=== PATIENT | female | born 1975 | race Caucasian/White ===

== ENCOUNTER 2017-01-15 10:26 | Emergency (ER) | payer BC ==
[~2017-01-15] VITALS: Ht 160 cm; Wt 66.2 kg
[~2017-01-15 10:26] MED LIST: AMOXICILLIN500 MG PO; AZITHROMYCIN250 MG PO; CIPRO500 MG PO; CITALOPRAM HBR20 MG PO; GABAPENTIN300 MG PO; IBUPROFEN800 MG PO; LEVOTHYROXINE112 MCG PO; LEVOTHYROXINE125 MCG PO; MAXALT10 MG PO; METHYLPREDNISOLO4 M1 PO; MULTI-DAY VITA1 EACH PO; NORTRIPTYLINE H10 MG PO; PREDNISONE20 MG PO; PROAIR HFA8.5 GM INH; PROPRANOLOL HCL20 MG PO; PROPRANOLOL HCL40 MG PO; PYRIDIUM200 MG PO; SUMATRIPTAN SUC50 MG PO; TRAMADOL HCL50 MG PO; VITAMIN C250 M1 PO; WELLBUTRIN XL300 MG PO
[2017-01-15] MEDS ORDERED: BUSPIRONE HCL15 MG PO (10:39)
--- OUTSIDE RECORDS SUMMARY | 2017-01-15 11:13 | XMS | Clinical Summary ---
Demographics + + + | Address | [address] | | | [place] [address] | + + + | Home Phone | | + + + | Preferred Language | Unknown | + + + | Marital Status | Single | + + + | Congregational Affiliation | Unknown | + + + | Race | White | + + + | Ethnic Group | Not or | + + + Author + + + | Author | [facility] | + + + | Organization | [facility] | + + + | Address | Unknown | + + + | Phone | Unavailable | + + + Support + + +---------+ + | Name | Relationship | Address | Phone | + + +---------+ + | Ollie Gail | ECON | Unknown | | + + +---------+ + Care Team Providers + +------+-------+ | Care Manager Science Name | Role | Phone | + +------+-------+ | Joan Bolanos PA-C | PP | tel | + +------+-------+ Source Comments MELLISA is fully live on both [facility] Ambulatory and [facility] InPatient.[facility] Allergies + + + + + + | Active Allergy | Reactions | Severity | Noted | Comments | | | | | Date | | + + + + + + | Meperidine | Hives | | 06/29/19 | | | | | | 16 | | + + + + + + Current Medications + + +-------+---------+------+------+-------+ | Prescription | Sig. | Disp. | Refills | Star | End | Statu | | | | | | t | Date | s | | | | | | Date | | | + + +-------+---------+------+------+-------+ | buPROPion XL 300 | 300 mg once daily. | | 0 | 03/1 | | Activ | | mg oral tablet | | | | 06/26 | | e | | extended release 24 | | | | 16 | | | | hr | | | | | | | + + +-------+---------+------+------+-------+ | nortriptyline 10 | once daily at | | 0 | 02/1 | | Activ | | mg oral capsule | bedtime. | | | 03/28 | | e | | | | | | 16 | | | + + +-------+---------+------+------+-------+ | VENTOLIN HFA 90 | Inhale 2 puffs by | | 0 | 02/2 | | Activ | | mcg/actuation | mouth every four | | | 8/20 | | e | | inhalation HFA | hours as needed. | | | 16 | | | | aerosol inhaler | | | | | | | + + +-------+---------+------+------+-------+ | ibuprofen 800 mg | Take 800 mg by mouth | | | | | Activ | | oral tablet | as needed. | | | | | e | + + +-------+---------+------+------+-------+ | levothyroxine 125 | Take 125 mcg by | | | | | Activ | | mcg oral tablet | mouth once daily. | | | | | e | + + +-------+---------+------+------+-------+ | naproxen 500 mg | 500 mg. | | | | | Activ | | oral tablet | | | | | | e | + + +-------+---------+------+------+-------+ Active Problems + + + | Problem | Noted Date | + + + | Dakotah (SURAJ) | 07/05/2015 | + + + Social History + + + +--------+------+ | Tobacco Use | Types | Packs/Day | Years | Date | | | | | Used | | + + + +--------+------+ | Current Every Day | Cigarettes | | | | | Smoker | | | | | + + + +--------+------+ + +---+---+---+ | Smokeless Tobacco: | | | | | Never Used | | | | + +---+---+---+ + + +---------+ + | Alcohol Use | Drinks/We | oz/Week | Comments | | | ek | | | + + +---------+ + | No | 0 | 0.0 | | | | Standard | | | | | drinks or | | | | | | | | | | equivalen | | | | | t | | | + + +---------+ + + + + | Sex Assigned at | Date Recorded | | | | + + + | Not on file | | + + + Last Filed Vital Signs + + + + | Vital Sign | Reading | Time Taken | + + + + | Blood Pressure | 135/88 | 07/13/2015 12:21 PM PDT | + + + + | Pulse | 94 | 07/13/2015 12:21 PM PDT | + + + + | Temperature | 36.7 C (98.1 F) | 07/13/2015 12:21 PM PDT | + + + + | Respiratory Rate | - | - | + + + + | Oxygen Saturation | - | - | + + + + | Inhaled Oxygen | - | - | | Concentration | | | + + + + | Weight | 76.7 kg (169 lb 1.6 | 07/13/2015 12:21 PM PDT | | | oz) | | + + + + | Height | 157.5 cm (5' 2") | 06/29/2015 10:46 AM PDT | + + + + | Body Mass Index | 30.93 | 07/13/2015 12:21 PM PDT | + + + + Plan of Treatment + + + + + | Health Maintenance | Due Date | Last Done | Comments | + + + + + | INFLUENZA VACCINE | | 02/07/2014 | | | (FLU SHOT) | 7 | | | + + + + + Results Not on filefrom Last 3 Months
--- OUTSIDE RECORDS SUMMARY | 2017-01-15 11:13 | XMS | Clinical Summary ---
Demographics + + + | Address | [address] | | | [place] [address] | + + + | Home Phone | | + + + | Preferred Language | Unknown | + + + | Marital Status | Single | + + + | Uatsdin Affiliation | Unknown | + + + | Race | White | + + + | Ethnic Group | Not or | + + + Author + + + | Author | [facility] | + + + | Organization | [facility] | + + + | Address | Unknown | + + + | Phone | Unavailable | + + + Support + + +---------+ + | Name | Relationship | Address | Phone | + + +---------+ + | Ollie Gail | ECON | Unknown | | + + +---------+ + Care Team Providers + +------+-------+ | Care Center Consultant Name | Role | Phone | + +------+-------+ | Joan Bolanos PA-C | PP | tel | + +------+-------+ Source Comments MELLISA is fully live on both [facility] Ambulatory and [facility] InPatient.[facility] & [facility] Allergies + + + + + + [...]
== END 2017-01-15 13:10 | disposition home or self-care (01) ==
LOC: ED 10:26
DX: G43.909 Migraine, unspecified, not intractable, without status migrainosus (principal); Z87.891 Personal history of nicotine dependence; Z98.51 Tubal ligation status; Z90.49 Acquired absence of other specified parts of digestive tract; Z88.8 Allergy status to other drugs, medicaments and biological substances; Z79.899 Other long term (current) drug therapy
CPT/HCPCS: 96361; 96374; 96375; 99282; J1200; J1885; J2765; J7030

== ENCOUNTER 2017-11-12 11:05 | Emergency (ER) | payer BC ==
[~2017-11-12] VITALS: Ht 160 cm; Wt 66.2 kg
--- OUTSIDE RECORDS SUMMARY | ~2017-11-12 | XMS | Clinical Summary ---
Demographics + + + | Address | [address] | | | [place] [address] | + + + | Home Phone | | + + + | Preferred Language | Unknown | + + + | Marital Status | Single | + + + | Yarsani Affiliation | Unknown | + + + | Race | White | + + + | Ethnic Group | Not or | + + + Author + + + | Author | [facility] | + + + | Organization | [facility] | + + + | Address | Unknown | + + + | Phone | Unavailable | + + + Support + + +---------+ + | Name | Relationship | Address | Phone | + + +---------+ + | Almaz Levin | ECON | Unknown | | + + +---------+ + Care Team Providers + +------+ + | Care Wireline Operator Name | Role | Phone | + +------+ + | Joan Bolanos PA-C | PP | | + +------+ + Source Comments MELLISA is fully live on both [facility] Ambulatory and [facility] InPatient.[facility] & [facility] Allergies + + + + + + [...] mg oral tablet | | | | 4/20 | | e | | extended release 24 | | | | 16 | | | | hr | | | | | | | + + +-------+---------+------+------+-------+ | nortriptyline 10 | once daily at | | 0 | 02/1 | | Activ | | mg oral capsule | bedtime. | | | 120 | | e | | | | [...] Noted Date | + + + | Meningioma (HCC) | 07/05/2015 | + + + Social [...] + + | INFLUENZA VACCINE | | | | | (FLU SHOT) | 8 | | | + + + + + Results Not on filefrom Last 3 Months Insurance + +--------+ +------+ + + | Payer | Benefi | Subscriber | Type | Phone | Address | | | t Plan | ID | | | | | | / | | | | | | | Group | | | | | + +--------+ +------+ + + | BLUE CROSS BLUE | BCBS | [phone] | PPO | [phone] [address] [address] [place] | | SHIELD | OUT OF | [phone] | | [phone] | [place], [place] | | | [place] | | | | [phone] | + +--------+ +------+ + + + +--------+ +--------+ + + | Guarantor Name | Accoun | Relation to | Date | Phone | Billing Address | | | t Type | Patient | of | | | | | | | | | | + +--------+ +--------+ + + | ROSALINA SPIVEY | Person | Self [birth year] | Home: | [address] | | | al/Fam | | 1975 | [phone] | [place] [address] | | | jesus | | | [phone] | | + +--------+ +--------+ + +
--- OUTSIDE RECORDS SUMMARY | ~2017-11-12 | XMS | Clinical Summary ---
Demographics + + + | Address | [address] | | | [place] [address] | + + + | Home Phone | | + + + | Preferred Language | Unknown | + + + | Marital Status | Single | + + + | Anglican Affiliation | Unknown | + + + [...] Team Providers + +------+ + | Care Boat Painter Name | Role | Phone | + +------+ + | Joan Bolanos PA-C | PP | | + +------+ + Source Comments MELLISA is fully live on both [facility] Ambulatory and [facility] InPatient.[facility] & [facility] Allergies + + + + [...] | PPO | [phone] | [address] [address] [place] | | SHIELD | OUT OF | xxx | | [phone] | [place], [place] | | | [place] | | | | [phone] | + +--------+ +------+ + + + +--------+ +--------+ + + | Guarantor Name | Accoun | Relation to | Date | Phone | Billing Address | | | t Type | Patient | of | | | | | | | | | | + +--------+ +--------+ + + | ROSALINA SPIVEY | Person | Self [birth year] | Home: | [address] | | | al/Fam | | 1975 | [phone] | [place] [address] | | | jesus | | | [phone] | | + +--------+ +--------+ + +
--- OUTSIDE RECORDS SUMMARY | ~2017-11-12 | XMS | Clinical Summary ---
Demographics + + + | Address | [address] | | | [place] [address] | + + + | Home Phone | | + + + | Preferred Language | Unknown | + + + | Marital Status | | + + + | Faith Affiliation | Unknown | + + + | Race | Unknown | + + + | Ethnic Group | Unknown | + + + Author + + + | Author | [facility] | | | and Surjitana | + + + | Organization | [facility] | | | and Surjitana | + + + | Address | Unknown | + + + | Phone | Unavailable | + + + Support + + +---------+ + | Name | Relationship | Address | Phone | + + +---------+ + | Almaz Levin | HALLE | Unknown | | + + +---------+ + Care Team Providers + +------+ + | Care Photoengraving Retoucher Name | Role | Phone | + +------+ + | Aman Cardoso MD | PP | | + +------+ + Allergies + + + + + + | Active Allergy | Reactions | Severity | Noted | Comments | | | | | Date | | + + + + + + | Meperidine | Hives | | 12/20/19 | | | | | | 15 | | + + + + + + Current Medications + + +-------+---------+------+------+-------+ | Prescription | Sig. | Disp. | Refills | Star | End | Statu | | | | | | t | Date | s | | | | | | Date | | | + + +-------+---------+------+------+-------+ | rizatriptan | Take 10 mg by mouth | | | | | Activ | | (MAXALT-JIG INSPECTOR) 10 mg | as needed (take one | | | | | e | | disintegrating | at onset and may | | | | | | | tablet | repeat in 2 hours.). | | | | | | | | May repeat in 2 | | | | | | | | hours if needed | | | | | | + + +-------+---------+------+------+-------+ | propranolol | Take 40 mg by mouth | | | | | Activ | | (INDERAL) 40 mg | 2 times daily. | | | | | e | | tablet | | | | | | | + + +-------+---------+------+------+-------+ | levothyroxine | Take 112 mcg by | | | | | Activ | | (SYNTHROID, | mouth every morning | | | | | e | | LEVOTHROID) 112 mcg | (before breakfast). | | | | | | | tablet | | | | | | | + + +-------+---------+------+------+-------+ | buPROPion | Take 300 mg by mouth | | | | | Activ | | (WELLBUTRIN XL) 300 | every morning. | | | | | e | | mg 24 hr tablet | | | | | | | + + +-------+---------+------+------+-------+ | citalopram | Take 20 mg by mouth | | | | | Activ | | (CELEXA) 20 mg | Daily. | | | | | e | | tablet | | | | | | | + + +-------+---------+------+------+-------+ | gabapentin | Take 300 mg by mouth | | | | | Activ | | (NEURONTIN) 300 mg | 3 times daily. | | | | | e | | capsule | | | | | | | + + +-------+---------+------+------+-------+ Active Problems Not on file Social History + + + +--------+------+ | Tobacco Use | Types | Packs/Day | Years | Date | | | | | Used | | + + + +--------+------+ | Heavy Tobacco Smoker | Cigarettes | 0.5 | | | + + + +--------+------+ + + | Tobacco Cessation: Ready to Quit: No | + + + + +---------+ + | Alcohol Use | Drinks/We | oz/Week | Comments | | | ek | | | + + +---------+ + | Yes | | | rarely | + + +---------+ + + + + | Sex Assigned at | Date Recorded | | | | + + + | Not on file | | + + + Last Filed Vital Signs + + + + | Vital Sign | Reading | Time Taken | + + + + | Blood Pressure | 92/65 | 12/19/20146 PDT | + + + + | Pulse | 66 | 12/19/20146 PDT | + + + + | Temperature | 37.2 C (99 F) | 12/19/2014 1134 PDT | + + + + | Respiratory Rate | 18 | 12/19/20141133 PDT | + + + + | Oxygen Saturation | 96% | 12/19/20146 PDT | + + + + | Inhaled Oxygen | - | - | | Concentration | | | + + + + | Weight | 65.8 kg (145 lb) | 12/19/20141133 PDT | + + + + | Height | 157.5 cm (5' 2.01") | 12/19/20141133 PDT | + + + + | Body Mass Index | 26.51 | 12/19/20141133 PDT | + + + + Plan of Treatment + + + + + | Health Maintenance | Due Date | Last Done | Comments | + + + + + | Vaccine: | | | | | Dtap/Tdap/Td (1 - | 5 | | | | Tdap) | | | | + + + + + | Vaccine: | | | | | Pneumococcal 19-64 | 5 | | | | (PPSV23 only) Medium | | | | | Risk (1 of 1 - | | | | | PPSV23) | | | | + + + + + | Cervical Cancer | | | | | Screening (Pap) | 6 | | | + + + + + | Vaccine: Influenza | | | | | (#1) | 8 | | | + + + + + Results Not on filefrom Last 3 Months Insurance + +--------+ +--------+ +---------+ | Payer | Benefi | Subscriber | Type | Phone | Address | | | t Plan | ID | | | | | | / | | | | | | | Group | | | | | + +--------+ +--------+ +---------+ | [employer] | MODA | [id number] | Medica | [phone] | | | MEDICAID HMO | HEALTH | | id | 9821 | | | | MDCD | | | | | | | [place]MO [place] | | | | | + +--------+ +--------+ +---------+ + +--------+ +--------+ + + | Guarantor Name | Accoun | Relation to | Date | Phone | Billing Address | | | t Type | Patient | of | | | | | | | | | | + +--------+ +--------+ + + | ROSALINA MAYA | Person | Self | [birth year] | Home: | [address] | | | al/Kevin | | 1975 | [phone] | [place] [address] | | | jesus | | | [phone] | | + +--------+ +--------+ + +
--- OUTSIDE RECORDS SUMMARY | ~2017-11-12 | XMS | Clinical Summary ---
Demographics + + + | Address | [address] | | | [place] [address] | + + + | Home Phone | | + + + | Preferred Language | Unknown | + + + | Marital Status | | + + + | Shinto Affiliation | Unknown | + + + | Race | Unknown | + + + | Ethnic Group | Unknown | + + + Author + + + | Author | [facility] | + + + | Organization | [facility] | + + + | Address | Unknown | + + + | Phone | Unavailable | + + + Support + + +---------+ + | Name | Relationship | Address | Phone | + + +---------+ + | Laurel Cannon | ECON | Unknown | | + + +---------+ + | Almaz Levin | ECON | Unknown | | + + +---------+ + Care Team Providers + +------+ + | Care Legal Librarian Name | Role | Phone | + +------+ + | Meron Virk | PP | Unavailable | + +------+ + Allergies + + + + + + | Active Allergy | Reactions | Severity | Noted | Comments | | | | | Date | | + + + + + + | Meperidine | Hives | High | 09/02/19 | | | | | | 15 | | + + + + + + Current Medications + + +---------+---------+------+------+-------+ | Prescription | Sig. | Disp. | Refills | Star | End | Statu | | | | | | t | Date | s | | | | | | Date | | | + + +---------+---------+------+------+-------+ | levothyroxine | Take 125 mcg by | | | | | Activ | | (SYNTHROID) 125 MCG | mouth daily. | | | | | e | | tablet | | | | | | | + + +---------+---------+------+------+-------+ | buPROPion | Take 300 mg by mouth | | | | | Activ | | (WELLBUTRIN XL) 300 | daily. | | | | | e | | MG 24 hr tablet | | | | | | | + + +---------+---------+------+------+-------+ | naproxen | Take 500 mg by mouth | | | | | Activ | | (NAPROSYN) 500 MG | 2 (two) times | | | | | e | | tablet | daily. | | | | | | + + +---------+---------+------+------+-------+ | nortriptyline | Take 2 capsules by | 60 | 3 | 02/1 | | Activ | | (PAMELOR) 10 MG | mouth nightly. Start | capsule | | /20 | | e | | capsuleIndications: | 10 mg hs, increase | | | 16 | | | | Chronic migraine | to 20 mg as needed | | | | | | | | and as tolerated | | | | | | | | after 2 weeks. | | | | | | + + +---------+---------+------+------+-------+ | verapamil | Take 1 tablet by | 30 | 3 | 04/0 | | Activ | | (CALAN-SR) 120 MG CR | mouth nightly. | tablet | | 20 | | e | | tabletIndications: | | | | 16 | | | | Chronic migraine | | | | | | | + + +---------+---------+------+------+-------+ | eletriptan | Take 1 tablet by | 10 | 2 | 04/1 | | Activ | | (RELPAX) 20 MG | mouth once as needed | tablet | | 2/20 | | e | | tabletIndications: | for Migraine (may | | | 16 | | | | Chronic migraine | repeat dose after 2 | | | | | | | | hours. Maximum of 40 | | | | | | | | in 24 hours.). | | | | | | + + +---------+---------+------+------+-------+ Active Problems + + + | Problem | Noted Date | + + + | Intractable migraine without status migrainosus | 07/02/2015 | + + + | Meningioma (HCC) | 07/02/2015 | + + + Social History + +-------+ +--------+------+ | Tobacco Use | Types | Packs/Day | Years | Date | | | | | Used | | + +-------+ +--------+------+ | Former Smoker | | | | | + +-------+ +--------+------+ + + +---------+ + | Alcohol Use [...] + + + | Blood Pressure | 112/86 | 07/02/2015 8:43 AM PDT | + + + + | Pulse | 101 | 07/02/2015 8:43 AM PDT | + + + + | Temperature | - | - | + + + + | Respiratory Rate | - | - | + + + + | Oxygen Saturation | - | - | + + + + | Inhaled Oxygen | - | - | | Concentration | | | + + + + | Weight | 75.8 kg (167 lb) | 07/02/2015 8:43 AM PDT | + + + + | Height | 157.5 cm (5' 2") | 07/02/2015 8:43 AM PDT | + + + + | Body Mass Index | 30.54 | 07/02/2015 8:43 AM PDT | + + + + Plan of Treatment + + + + + | Health Maintenance | Due Date | Last Done | Comments | + + + + + | Vaccine: | | | | | Dtap/Tdap/Td (1 - | 5 | | | | Tdap) | | | | + + + + + | Cervical Cancer | 05/15/200 | | | | Screening (Pap) | 6 | | | + + + + + | Vaccine: Influenza | | | | | (#1) | 8 | | | + + + + + Results Not on filefrom Last 3 Months Insurance + +--------+ +------+-------+ + | Payer | Benefi | Subscriber | Type | Phone | Address | | | t Plan | ID | | | | | | / | | | | | | | Group | | | | | + +--------+ +------+-------+ + | MEDICAID | [employer] | [id number] | | | [address] | | | [place] | | | | [place] | | | [place] | | | | [phone] | | | [employer] | | | | | + +--------+ +------+-------+ + + +--------+ +--------+ + + | Guarantor Name | Accoun | Relation to | Date | Phone | Billing Address | | | t Type | Patient | of | | | | | | | | | | + +--------+ +--------+ + + | ROSALINA MAYA | Person | Self [birth year] | Home: | [address] | | | al/Fam | | 1975 | [phone] | [address] | | | jesus | | | [phone] | [place] | | | | | | | [phone] | + +--------+ +--------+ + +
--- OUTSIDE RECORDS SUMMARY | ~2017-11-12 | XMS | Clinical Summary ---
Demographics + + + | Address | [address] | | | [place] [address] | + + + | Home Phone | | + + + | Preferred Language | Unknown | + + + | Marital Status | | + + + | Yazidi Affiliation | Unknown | + + + | Race | Unknown | + + + | Ethnic Group | Unknown | + + + Author + + + | Author | [facility] | | | and Surjitana | + + + | Organization | [facility] | | | and Surjitana | [...] Team Providers + +------+ + | Care Manager Employment Name | Role | Phone | + [...] | | | | Activ | | (MAXALT-WATER OPERATOR) 10 mg | as needed (take one [...] | [employer] | MODA | [id number] | Medica | [phone] | | | MEDICAID HMO | HEALTH [...] | Self | [birth year] | Home: | [address] | | | al/Kevin | | 1975 | [phone] | [place] [address] | | | jesus | | | [phone] | | + +--------+ +--------+ + +
--- OUTSIDE RECORDS SUMMARY | ~2017-11-12 | XMS | Clinical Summary ---
Demographics + + + | Address | [address] | | | [place] [address] | + + + | Home Phone | | + + + | Preferred Language | Unknown | + + + | Marital Status | | + + + | Oriental Orthodox Affiliation | Unknown | + + + | Race | Unknown | + + + | Ethnic Group | Unknown | + + + Author + + + | Author | [facility] | + + + | Organization | [facility] | + + + | Address [...] Team Providers + +------+ + | Care Mangle Operator Garments Name | Role | Phone | + [...] +------+-------+ + | MEDICAID | [place] | [id number] | | | [address] | | | N | | | | [place] | | | [place] | | | | [phone] | | | [place] | | | | | + +--------+ [...] | [birth year] | Home: | [address] | | | al/Fam | | 1975 | [phone] | [address] | | | jesus | | | [phone] | [place] | | | | | | | [phone] | + +--------+ +--------+ + +
[~2017-11-12 11:05] MED LIST changes: +BUSPIRONE HCL15 MG PO
[2017-11-12] MEDS ORDERED: IBU800 MG PO (11:15)
== END 2017-11-12 12:21 | disposition home or self-care (01) ==
LOC: ED 11:05
DX: S20.211A Contusion of right front wall of thorax, initial encounter (principal); Z87.891 Personal history of nicotine dependence; Z88.8 Allergy status to other drugs, medicaments and biological substances; Z79.899 Other long term (current) drug therapy; X58.XXXA Exposure to other specified factors, initial encounter
CPT/HCPCS: 71101; 99283

== ENCOUNTER 2021-01-11 20:47 | Emergency (ER) | payer BC, OTHER ==
[~2021-01-11] VITALS: Ht 160 cm; Wt 74.0 kg
[~2021-01-11 20:47] MED LIST changes: +ACETAMINOPHEN500 MG PO; +CRANBERRY200 MG PO; +FLONASE ALLERG9.9 ML NAS; +HYDROCODON-ACE1 EA10 PO; +IBU800 MG PO; +IBUPROFEN600 MG PO; +KETOROLAC TROME10 MG PO; +MAPAP325 MG PO; +NICOTINE PATCH1 EACH TD; +OXYCODON-ACETA1 EAC2 PO; +PRENATE ENHANC1 EACH PO
--- OUTSIDE RECORDS SUMMARY | 2021-01-11 20:50 | XMS ---
PreManage Notification: ROSALINA MAYA Security Rn Picu Events No recent Security Events currently on file CRITERIA MET - Group Notification CARE PROVIDERS NILAM LINN Physician Agent Producer 11/13/2017-Current PHONE: Unknown Ghada has no Care Guidelines for this patient. Suresh VISIT COUNT (12 MO.) 1 MICHELLE [place] TOTAL 1 NOTE: Visits indicate total known visits. ED/UCC VISIT TRACKING (12 MO.) 01/11/2021 20:48 [facility] [place] TYPE: Emergency COMPLAINT: - POST OP PROBLEM INPATIENT VISIT TRACKING (12 MO.) No inpatient visits to display in this time frame [id number]
[2021-01-12] MEDS ORDERED: CEPHALEXIN500 MG PO (01:03)
[2021-01-12] MEDS ORDERED: BACTRIM DS TAB1 EACH PO (01:03)
[2021-01-12] MEDS ORDERED: HYDROCODON-ACE1 EA10 PO (01:38)
== END 2021-01-12 02:12 | disposition home or self-care (01) ==
LOC: ED 20:47
DX: T81.41XA Infection following a procedure, superficial incisional surgical site, initial encounter (principal); L08.9 Local infection of the skin and subcutaneous tissue, unspecified; G43.909 Migraine, unspecified, not intractable, without status migrainosus; Z87.891 Personal history of nicotine dependence; Z88.8 Allergy status to other drugs, medicaments and biological substances; Z88.1 Allergy status to other antibiotic agents; Z79.899 Other long term (current) drug therapy
CPT/HCPCS: 76882; 80053; 83605; 85025; 96365; 96375; 99284-25; J1170; J2405; J3370; J7030

== ENCOUNTER 2021-09-26 12:58 | Emergency (ER) | payer OTHER ==
[~2021-09-26] VITALS: Ht 160 cm; Wt 74.4 kg
[~2021-09-26 12:58] MED LIST changes: +BACTRIM DS TAB1 EACH PO; +CEPHALEXIN500 MG PO
--- OUTSIDE RECORDS SUMMARY | 2021-09-26 13:00 | XMS ---
PreManage Notification: ROSALINA MAYA Security Fish Frog Or Oyster Farmer Events No recent Security Events currently on file CRITERIA MET - Group Notification CARE PROVIDERS NILAM LINN Physician Lacquer Coater 11/13/2017-Current PHONE: Unknown JOVI MATHEWS Physician Lacquer Coater 01/14/2021-Current PHONE: [phone] Ghada has no Care Guidelines for this patient. Suresh VISIT COUNT (12 MO.) 2 MICHELLE [place] TOTAL 2 NOTE: Visits indicate total known visits. ED/UCC VISIT TRACKING (12 MO.) 09/26/2021 12:58 [facility] [place] TYPE: Emergency COMPLAINT: - ABD PAIN 01/11/2021 20:48 [facility] [place] TYPE: Emergency COMPLAINT: - POST OP PROBLEM DIAGNOSES: - Personal history of nicotine dependence - Local infection of the skin and subcutaneous tissue, unspecified - Allergy status to other antibiotic agents - Other care home (current) drug therapy - Migraine, unspecified, not intractable, without status migrainosus - Allergy status to other drugs, medicaments and biological substances - Infection following a procedure, superficial incisional surgical site, initial encounter - Fever, unspecified INPATIENT VISIT TRACKING (12 MO.) No inpatient visits to display in this time frame [id number]
== END 2021-09-26 19:52 | disposition home or self-care (01) ==
LOC: ED 12:58
DX: K52.9 Noninfective gastroenteritis and colitis, unspecified (principal); M54.50 Low back pain, unspecified; G43.909 Migraine, unspecified, not intractable, without status migrainosus; Z87.891 Personal history of nicotine dependence; Z88.8 Allergy status to other drugs, medicaments and biological substances; Z88.1 Allergy status to other antibiotic agents; Z79.899 Other long term (current) drug therapy
CPT/HCPCS: 36415; 74177; 80053; 81001; 83690; 85025; 96375; 99284-25; J1885; J2405; Q9967

== ENCOUNTER 2022-06-11 06:39 | Emergency (ER) | payer BC, OTHER ==
[~2022-06-11] VITALS: Ht 160 cm; Wt 74.0 kg
--- OUTSIDE RECORDS SUMMARY | 2022-06-11 06:48 | XMS ---
PreManage Notification: ROSALINA MAYA Security Physicist Solid Earth Events No recent Security Events currently on file CRITERIA MET - Group Notification CARE PROVIDERS -, Nikole- Dentist: Safety Manager [facility] PHONE: [phone] NILAM LINN Physician As400 Programmer 11/13/2017-Current PHONE: Unknown JOVI MATHEWS Physician As400 Programmer 01/14/2021-Current PHONE: [phone] Ghada has no Care Guidelines for this patient. E.D. VISIT COUNT (12 MO.) 2 MICHELLE [place]ivais TOTAL 2 NOTE: Visits indicate total known visits. ED/UCC VISIT TRACKING (12 MO.) 06/11/2022 06:40 [facility] [place] TYPE: Emergency COMPLAINT: - HEADACHE 09/26/2021 12:58 [facility] [place] TYPE: Emergency COMPLAINT: - ABD PAIN DIAGNOSES: - Allergy status to other drugs, medicaments and biological substances - Noninfective gastroenteritis and colitis, unspecified - Other buttermaker (current) drug therapy - Unspecified abdominal pain - Migraine, unspecified, not intractable, without status migrainosus - Personal history of nicotine dependence - Allergy status to other antibiotic agents - Low back pain, unspecified INPATIENT VISIT TRACKING (12 MO.) No inpatient visits to display in this time frame [id number]
[2022-06-11] MEDS ORDERED: REGLAN10 MG PO (08:46)
== END 2022-06-11 09:15 | disposition home or self-care (01) ==
LOC: ED 06:39
DX: R51.9 Headache, unspecified (principal); Z87.891 Personal history of nicotine dependence; Z88.8 Allergy status to other drugs, medicaments and biological substances; Z88.1 Allergy status to other antibiotic agents; Z79.899 Other long term (current) drug therapy
CPT/HCPCS: 36415; 80048; 85025; 96374; 96375; 99284-25; J1100; J1200; J1790; J1885; J7030